=== PATIENT | female | born 1940 | race Two or more races ===

== ENCOUNTER 2018-05-03 05:12 | Inpatient (IN) | payer OTHER ==
[~2018-05-03] VITALS: Ht 152.4 cm; Wt 61.2 kg
[~2018-05-03 05:12] MED LIST: FOLGARD TABLET1 EACH PO; GABAPENTIN600 MG PO; GLIPIZIDE ER2.5 MG PO; IBERSARTAN PO; JANUVIA100 MG PO; PLAVIX75 MG PO; PROVASTATIN PO; SYNTHROID88 MCG PO
[2018-05-03] MEDS ORDERED: MACROBID 100 M100 MG PO (09:28)
[2018-05-03] MEDS ORDERED: TYLENOL-CODEINE1 TA1 PO (09:28)
== END 2018-05-04 11:42 | disposition home or self-care (01) | DRG 747 ==
LOC: CIR.AMB 05:12 → SURH 14:10 → CIR.AMB 14:45 → SURH 05-04 11:42
PROVIDERS: ADMIT Obstetrics & Gynecology Gynecology
PROC: 0UTG7ZZ Resection of Vagina, Via Natural or Artificial Opening (ICD-10-PCS; 2018-05-03)
PROC: 0UQGXZZ Repair Vagina, External Approach (ICD-10-PCS; 2018-05-03)
PROC: 0UQF7ZZ Repair Cul-de-sac, Via Natural or Artificial Opening (ICD-10-PCS; principal; 2018-05-03 07:00)
DX: N81.12 Cystocele, lateral (principal); N81.5 Vaginal enterocele; N39.46 Mixed incontinence; N81.6 Rectocele; R15.2 Fecal urgency